=== PATIENT | male | born 1965 | race Caucasian/White ===

== ENCOUNTER 2017-07-19 00:09 | Emergency (ER) | payer SELFPAY ==
[~2017-07-19] VITALS: Ht 167.6 cm; Wt 68.0 kg
--- NOTE | 2017-07-19 00:15 | NUR ---
BBRA 909 FROM HOME C/O "NOT FEELING WELL AND HAVING DIFFICULT TIME TALKING." PER PT'S , PT "HAS BEEN DEPRESSED AND NOT EATING USUAL." THE PT'S ALSO STATES "I BELIEVE HE MAY BE HAVE TAKEN SOMETHING, HE DOES HAVE XANAX AT HOME." PT IS AAOX3. SKIN WNL. VSS. RESP EVEN AND UNLABORED. NO S.S OF ACUTE DISTRESS NOTED. BEDSIDE FOR EVAL. PT PLACED ON MONITOR AND POX.
--- NOTE | 2017-07-19 00:47 | NUR ---
PT TO CT
--- NOTE | 2017-07-19 01:02 | NUR ---
PT BACK FROM CT
--- NOTE | 2017-07-19 01:05 | NUR ---
PHLEBOTOMY BEDSIDE FOR BLOOD DRAW.
[2017-07-19 01:13] LABS: BASOPHILS % (AUTO) 0.5 % (0.0-2.0); HEMATOCRIT 37 % (39-51); HEMOGLOBIN 12.8 g/dL (13.5-17.5); LYMPHOCYTES # (AUTO) 1.7 /CMM (0.8-4.8); LYMPHOCYTES % (AUTO) 27.9 % (20.0-44.0); MEAN CORPUSCULAR HGB CONC 35 g/dl (31.0-36.0); MEAN CORPUSCULAR VOLUME 96 fL (80-96); MONOCYTES # (AUTO) 0.3 /CMM (0.1-1.30); MONOCYTES % (AUTO) 4.9 % (2.0-12.0); NEUTROPHILS # (AUTO) 3.7 /CMM (1.8-8.9); NEUTROPHILS % (AUTO) 61.7 % (43.0-81.0); PLATELET COUNT (AUTO) 243 /CMM (150-450); RDW COEFFICIENT OF VARIATION 12.7 (11.5-15.0); RED BLOOD CELL COUNT(AUTO) 3.87 MIL/uL (4.5-6.0); WHITE BLOOD COUNT (AUTO) 5.9 K/uL (4.3-11.0)
--- NOTE | 2017-07-19 01:13 | NUR ---
EMT BEDSIDE FOR EKG
[2017-07-19 01:26] LABS: INR 0.91 (0.87-1.13)
[2017-07-19 01:40] LABS: TROPONIN I < 0.017 ng/mL (0.00-0.056)
[2017-07-19 01:51] LABS: ALANINE AMINOTRANSFERASE 38 U/L (12-78); ALBUMIN 3.4 g/dL (3.4-5.0); ALKALINE PHOSPHATASE 41 U/L (46-116); ASPARTATE AMINOTRANSFERASE 37 U/L (15-37); BILIRUBIN,DIRECT 0.1 mg/dL (0.0-0.2); BILIRUBIN,TOTAL 0.3 mg/dL (0.2-1.0); CALCIUM, SERUM 8.2 mg/dL (8.5-10.1); CARBON DIOXIDE 27 mmol/L (21-32); CHLORIDE 101 mmol/L (98-107); CREATININE 0.9 mg/dL (0.6-1.3); GLUCOSE 100 mg/dL (74-106); POTASSIUM 3.2 mmol/L (3.5-5.1); SODIUM SERUM 138 mmol/L (136-145); UREA NITROGEN, BLOOD 19 mg/dL (7-18)
[2017-07-19 02:04] LABS: APPEARANCE,URINE CLEAR (CLEAR); BILIRUBIN,URINE NEGATIVE (NEGATIVE); BLOOD, URINE NEGATIVE Ery/uL (NEGATIVE); COLOR,URINE YELLOW (YELLOW); KETONES,URINE NEGATIVE (NEGATIVE); LEUKOCYTE ESTERASE ,URINE NEGATIVE (NEGATIVE); NITRITE, URINE NEGATIVE (NEGATIVE); PROTEIN,URINE NEGATIVE (NEGATIVE); UGLUCOSE NEGATIVE (NEGATIVE); UROBILINOGEN,URINE 0.2 EU/dL (0.2)
--- NOTE | 2017-07-19 02:37 | NUR ---
Patient discharged to home in stable condition. Written and verbal after care instructions given. Patient verbalizes understanding of instruction. VSS upon discharge. Pt walked out by friends and family. Pt instructed not to drive.
[2017-07-19 02:39] VITALS: BP 137/89
== END 2017-07-19 02:42 | disposition home or self-care (01) ==
LOC: ER 00:14
DX: F14.10 Cocaine abuse, uncomplicated (principal); F19.10 Other psychoactive substance abuse, uncomplicated
CPT/HCPCS: 36415; 51701; 70450; 71045; 80048; 80076; 80305; 81001; 82962; 84484; 85025; 85730; 93005; 99285; A4606; G0480; Z7610; 81000-TC